=== PATIENT | female | born 1930 | race Caucasian/White ===

== ENCOUNTER 2016-06-18 11:15 | Inpatient (IN) | payer MEDICARE, OTHER ==
[~2016-06-18] VITALS: Ht 162.6 cm; Wt 54.4 kg
[2016-06-18 11:59] LABS: BASOPHILS % (AUTO) 0.1 % (0.0-2.0); DIFF TOTAL % 100 %; EOSINOPHILS # (AUTO) 0.1 /CMM (0.0-0.7); EOSINOPHILS % (AUTO) 1.2 % (0.0-6.0); HEMATOCRIT 33 % (33-45); HEMOGLOBIN 10.6 g/dL (11.5-14.8); LYMPHOCYTES # (AUTO) 0.7 /CMM (0.8-4.8); LYMPHOCYTES % (AUTO) 11.2 % (20.0-44.0); MEAN CORPUSCULAR HEMOGLOBIN 30 PG (26.0-33.0); MEAN CORPUSCULAR HGB CONC 32 g/dl (31.0-36.0); MEAN CORPUSCULAR VOLUME 93 fL (82-100); MONOCYTES # (AUTO) 0.3 /CMM (0.1-1.30); MONOCYTES % (AUTO) 5.4 % (2.0-12.0); NEUTROPHILS # (AUTO) 4.8 /CMM (1.8-8.9); NEUTROPHILS % (AUTO) 82.1 % (43.0-81.0); PLATELET COUNT (AUTO) 245 /CMM (150-450); RED BLOOD CELL COUNT(AUTO) 3.51 MIL/uL (4.0-5.2); WHITE BLOOD COUNT (AUTO) 5.9 K/uL (4.3-11.0)
[2016-06-18 12:15] LABS: INR 1.01 (0.87-1.13); PROTHROMBIN TIME 10.6 SECS (9.5-12.7)
[2016-06-18 12:21] LABS: ALBUMIN 2.6 g/dL (3.4-5.0); BILIRUBIN,DIRECT 0.1 mg/dL (0.0-0.2); BILIRUBIN,TOTAL 0.3 mg/dL (0.2-1.0); CALCIUM, SERUM 8.1 mg/dL (8.5-10.1); CREATININE 1.1 mg/dL (0.6-1.3); INDIRECT BILIRUBIN 0.2 mg/dL (0.0-1.1); TOTAL PROTEIN, SERUM 5.6 g/dL (6.4-8.2)
[2016-06-18 12:31] LABS: KETONES,URINE Trace (NEGATIVE); LEUKOCYTE ESTERASE ,URINE Negative (NEGATIVE); PH,URINE 5.5 (5.0-8.0)
[2016-06-18] MEDS ORDERED: IV NS 0.9% 1,000 ML IV ONE ×2 (12:37→14:00)
[2016-06-18 12:46] LABS: ADD UA MICROSCOPIC YES
[2016-06-18 12:53] LABS: ADD URINE CULTURE NO
[2016-06-18] MEDS ORDERED: INSULIN REGULAR, HUMAN 100 UNIT/ML 10 ML VIAL SQ ONE (13:00)
[2016-06-18] MEDS ORDERED: METRONIDAZOLE 500MG/ NS 100ML 100 ML IV ONE (13:43)
[2016-06-18] MEDS ORDERED: INSULIN REGULAR, HUMAN 100 UNIT/ML 10 ML VIAL ONE (13:43)
[2016-06-18] MEDS ORDERED: IV SET PRIMARY 1 EA INFUS.SET MC ONE (13:43)
[2016-06-18] MEDS ORDERED: IV SET PRIMARY PUMP SET 1 EA INFUS.SET MC ONE (13:43)
[2016-06-18] MEDS ORDERED: IV NS 0.9% 1,000 ML ONE (13:43)
[2016-06-18] MEDS ORDERED: IV D5/0.45 NACL 1,000 ML IV PRN (13:46)
[2016-06-18] MEDS ORDERED: ASPI-605 PO (13:52)
[2016-06-18] MEDS ORDERED: REPA1TAB6 PO (13:52)
[2016-06-18] MEDS ORDERED: LINA5TAB PO (13:52)
[2016-06-18] MEDS ORDERED: METO-304 PO (13:52)
[2016-06-18] MEDS ORDERED: CYAN100071 PO (13:52)
[2016-06-18] MEDS ORDERED: AMLO5TAB2 PO (13:52)
[2016-06-18] MEDS ORDERED: PANCRELIPASE PO (13:52)
[2016-06-18] MEDS ORDERED: VITA1TAB PO (13:52)
[2016-06-18] MEDS ORDERED: FLAGYL/NS RTU 500 MG/100 ML PIGGYBACK IV ONE (14:00)
[2016-06-18] MEDS ORDERED: ACETAMINOPHEN 325 MG TABLET PO PRN (14:00)
[2016-06-18] MEDS ORDERED: LEVOFLOXACIN 500 MG /D5W 100ML 500 MG in PREMIX 1 EA IV SCH (14:00)
[2016-06-18] MEDS ORDERED: Z GUARD REMEDY 2 OZ OINT TP PRN (14:00)
[2016-06-18] MEDS ORDERED: HYDROCODONE/APAP 5/325MG 1 EACH TABLET PO PRN (14:00)
[2016-06-18] MEDS ORDERED: ONDANSETRON HCL/PF 4 MG/2 ML VIAL IVP PRN (14:00)
[2016-06-18] MEDS ORDERED: MORPHINE SULFATE INJ 2 MG/ML DISP.SYRIN IV PRN (14:00)
[2016-06-18] MEDS ORDERED: LEVOFLOXACIN 750 MG /D5W 150ML PIGGYBACK IV ONE (14:00)
[2016-06-18] MEDS ORDERED: MAG HYDROX/AL HYDROX/SIMETH 30 ML UDC PO PRN (14:00)
[2016-06-18] MEDS ORDERED: DEXTROSE 50%-WATER 50 ML DISP.SYRIN IV PRN ×2 (14:00→18:00)
[2016-06-18] MEDS ORDERED: MAGNESIUM HYDROXIDE 30 ML UDC PO PRN (14:00)
[2016-06-18] MEDS ORDERED: PEG 3350/NA SULF,BICARB,CL/KCL 4,000 ML BOTTLE PO ONE (15:30)
[2016-06-18 16:00] VITALS: BP 117/72
[2016-06-18] MEDS ORDERED: *INSULIN REGULAR(HUMULIN R)HUM 100 UNIT/ML VIAL SQ PRN (18:00)
[2016-06-18] MEDS: BLOOD SUGAR DIAGNOSTIC 1 EACH STRIP VI SCH ×2 (18:00→22:15)
[2016-06-18] MEDS ORDERED: INSULIN REGULAR, HUMAN 100 UNIT/ML 3 ML VIAL SQ PRN (18:00)
[2016-06-18] MEDS ORDERED: SECONDARY IV SET 1 EA INFUS.SET MC ONE (18:55)
[2016-06-18] MEDS: ENOXAPARIN SODIUM 30 MG/0.3 ML DISP.SYRIN SQ SCH (19:30)
[2016-06-18 20:00] VITALS: BP 129/70
[2016-06-18] MEDS: METRONIDAZOLE 500MG/ NS 100ML 500 MG in PREMIX 1 EA IV SCH (21:08)
[2016-06-18] MEDS ORDERED: BLOOD SUGAR DIAGNOSTIC 1 EACH STRIP VI SCH (22:00)
[2016-06-18] MEDS: *INSULIN REGULAR(HUMULIN R)HUM 100 UNIT/ML VIAL SQ PRN (22:23)
[2016-06-19] MEDS: METRONIDAZOLE 500MG/ NS 100ML 500 MG in PREMIX 1 EA IV SCH ×5 (01:13→23:23)
[2016-06-19 07:11] LABS: ALBUMIN 2.8 g/dL (3.4-5.0); BILIRUBIN,DIRECT 0.1 mg/dL (0.0-0.2); BILIRUBIN,TOTAL 0.3 mg/dL (0.2-1.0); CALCIUM, SERUM 8.4 mg/dL (8.5-10.1); CREATININE 0.9 mg/dL (0.6-1.3); INDIRECT BILIRUBIN 0.2 mg/dL (0.0-1.1); PHOSPHORUS 3.4 mg/dL (2.5-4.9); POTASSIUM 3.7 mmol/L (3.5-5.1); TOTAL PROTEIN, SERUM 6.1 g/dL (6.4-8.2)
[2016-06-19] MEDS: BLOOD SUGAR DIAGNOSTIC 1 EACH STRIP VI SCH ×4 (07:12→21:47)
[2016-06-19 07:33] LABS: BASOPHILS % (AUTO) 0.1 % (0.0-2.0); DIFF TOTAL % 100 %; EOSINOPHILS # (AUTO) 0.1 /CMM (0.0-0.7); EOSINOPHILS % (AUTO) 1.9 % (0.0-6.0); HEMATOCRIT 34 % (33-45); HEMOGLOBIN 11.3 g/dL (11.5-14.8); LYMPHOCYTES # (AUTO) 1.2 /CMM (0.8-4.8); LYMPHOCYTES % (AUTO) 16.4 % (20.0-44.0); MEAN CORPUSCULAR HEMOGLOBIN 31 PG (26.0-33.0); MEAN CORPUSCULAR HGB CONC 34 g/dl (31.0-36.0); MEAN CORPUSCULAR VOLUME 94 fL (82-100); MONOCYTES # (AUTO) 0.6 /CMM (0.1-1.30); MONOCYTES % (AUTO) 7.7 % (2.0-12.0); NEUTROPHILS # (AUTO) 5.6 /CMM (1.8-8.9); NEUTROPHILS % (AUTO) 73.9 % (43.0-81.0); PLATELET COUNT (AUTO) 243 /CMM (150-450); RED BLOOD CELL COUNT(AUTO) 3.61 MIL/uL (4.0-5.2); WHITE BLOOD COUNT (AUTO) 7.6 K/uL (4.3-11.0)
[2016-06-19 08:00] VITALS: BP 142/75
[2016-06-19] MEDS: PANTOPRAZOLE 40 MG VIAL IV SCH (09:00)
[2016-06-19] MEDS ORDERED: Magnesium 1GM/D5W 100ML PREMIX 100 ML IV SCH (12:00)
[2016-06-19] MEDS ORDERED: SECONDARY IV SET 1 EA INFUS.SET MC ONE (14:35)
[2016-06-19] MEDS: INSULIN REGULAR, HUMAN 100 UNIT/ML 3 ML VIAL SQ PRN ×2 (14:43→17:35)
[2016-06-19] MEDS: ENOXAPARIN SODIUM 30 MG/0.3 ML DISP.SYRIN SQ SCH (14:43)
[2016-06-19 16:00] VITALS: BP 130/72
[2016-06-19] MEDS: LEVOFLOXACIN 250 MG /D5W 50 ML 250 MG in PREMIX 1 EA IV SCH (16:15)
[2016-06-19 20:00] VITALS: BP 128/68
[2016-06-19 20:31] VITALS: BP 128/68
[2016-06-19] MEDS: *INSULIN REGULAR(HUMULIN R)HUM 100 UNIT/ML VIAL SQ PRN (22:22)
[2016-06-20] MEDS: METRONIDAZOLE 500MG/ NS 100ML 500 MG in PREMIX 1 EA IV SCH ×2 (05:34→12:23)
[2016-06-20] MEDS: BLOOD SUGAR DIAGNOSTIC 1 EACH STRIP VI SCH ×2 (06:37→12:24)
[2016-06-20] MEDS: INSULIN REGULAR, HUMAN 100 UNIT/ML 3 ML VIAL SQ PRN ×2 (06:41→12:35)
[2016-06-20 07:54] LABS: BASOPHILS % (AUTO) 0.4 % (0.0-2.0); DIFF TOTAL % 100 %; EOSINOPHILS # (AUTO) 0.2 /CMM (0.0-0.7); EOSINOPHILS % (AUTO) 4.3 % (0.0-6.0); HEMATOCRIT 33 % (33-45); HEMOGLOBIN 10.7 g/dL (11.5-14.8); LYMPHOCYTES % (AUTO) 25.6 % (20.0-44.0); MEAN CORPUSCULAR HEMOGLOBIN 30 PG (26.0-33.0); MEAN CORPUSCULAR HGB CONC 33 g/dl (31.0-36.0); MEAN CORPUSCULAR VOLUME 93 fL (82-100); MONOCYTES # (AUTO) 0.3 /CMM (0.1-1.30); MONOCYTES % (AUTO) 7.4 % (2.0-12.0); NEUTROPHILS # (AUTO) 2.4 /CMM (1.8-8.9); NEUTROPHILS % (AUTO) 62.3 % (43.0-81.0); PLATELET COUNT (AUTO) 277 /CMM (150-450); RED BLOOD CELL COUNT(AUTO) 3.53 MIL/uL (4.0-5.2); WHITE BLOOD COUNT (AUTO) 3.9 K/uL (4.3-11.0)
[2016-06-20 08:00] VITALS: BP 153/78
[2016-06-20 08:31] LABS: CALCIUM, SERUM 8.4 mg/dL (8.5-10.1); POTASSIUM 3.7 mmol/L (3.5-5.1)
[2016-06-20 08:32] LABS: BILIRUBIN,DIRECT 0.1 mg/dL (0.0-0.2); CREATININE 0.9 mg/dL (0.6-1.3); INDIRECT BILIRUBIN 0.1 mg/dL (0.0-1.1)
[2016-06-20 08:33] LABS: ALBUMIN 2.5 g/dL (3.4-5.0); TOTAL PROTEIN, SERUM 5.5 g/dL (6.4-8.2)
[2016-06-20 08:35] LABS: BILIRUBIN,TOTAL 0.2 mg/dL (0.2-1.0); PHOSPHORUS 3.8 mg/dL (2.5-4.9)
[2016-06-20] MEDS: PANTOPRAZOLE 40 MG VIAL IV SCH (09:10)
[2016-06-20] MEDS: LEVOFLOXACIN 250 MG /D5W 50 ML 250 MG in PREMIX 1 EA IV SCH (14:39)
[2016-06-20] MEDS: ENOXAPARIN SODIUM 30 MG/0.3 ML DISP.SYRIN SQ SCH (14:45)
[2016-06-20 16:00] VITALS: BP 138/72
[2016-06-20 16:27] VITALS: BP 138/72
== END 2016-06-20 18:30 | disposition home or self-care (01) | DRG 438 ==
LOC: ER 11:16 → MEDSG2 13:56
PROVIDERS: ADMIT Internal Medicine; ATTEND Internal Medicine
PROC: 0DBE8ZX Excision of Large Intestine, Via Natural or Artificial Opening Endoscopic, Diagnostic (ICD-10-PCS; principal; 2016-06-19 09:29)
DX: K85.90 Acute pancreatitis without necrosis or infection, unspecified (principal); E43 Unspecified severe protein-calorie malnutrition; K52.9 Noninfective gastroenteritis and colitis, unspecified; Z90.411 Acquired partial absence of pancreas; I10 Essential (primary) hypertension; E11.9 Type 2 diabetes mellitus without complications; K59.09 Other constipation; K59.00 Constipation, unspecified; D64.9 Anemia, unspecified; Z68.20 Body mass index [BMI] 20.0-20.9, adult; K57.30 Diverticulosis of large intestine without perforation or abscess without bleeding; K64.1 Second degree hemorrhoids
CPT/HCPCS: 36415; 80048-TC; 80061-TC; 80076-TC; 81000-TC; 82962-TC; 83690-TC; 83735-TC; 84100-TC; 85025-TC; 85730-TC; 87081-TC; 88305-TC; A4216; A4606; C9113; J1650; J1815; J1956; J2405; J3475; J3490; J7030; Z7610

== ENCOUNTER 2016-07-23 12:24 | Inpatient (IN) | payer MEDICARE, OTHER ==
[~2016-07-23] VITALS: Ht 162.6 cm; Wt 50.8 kg
[~2016-07-23 12:24] MED LIST: AMLO5TAB2 PO; ASPI-605 PO; CYAN100071 PO; LINA5TAB PO; METO-304 PO; PANCRELIPASE PO; REPA1TAB6 PO; VITA1TAB PO
[2016-07-23] MEDS ORDERED: IV NS 0.9% 500 ML BAG IV ONE (13:30)
[2016-07-23] MEDS ORDERED: IV SET PRIMARY 1 EA INFUS.SET MC ONE (13:36)
[2016-07-23] MEDS ORDERED: IV NS 0.9% 500 ML IV ONE (13:36)
[2016-07-23 13:46] LABS: BASOPHILS % (AUTO) 0.2 % (0.0-2.0); DIFF TOTAL % 100 %; EOSINOPHILS % (AUTO) 0.1 % (0.0-6.0); HEMATOCRIT 32 % (33-45); HEMOGLOBIN 10.7 g/dL (11.5-14.8); LYMPHOCYTES # (AUTO) 0.8 /CMM (0.8-4.8); LYMPHOCYTES % (AUTO) 5.4 % (20.0-44.0); MEAN CORPUSCULAR HEMOGLOBIN 31 PG (26.0-33.0); MEAN CORPUSCULAR HGB CONC 34 g/dl (31.0-36.0); MEAN CORPUSCULAR VOLUME 91 fL (82-100); MONOCYTES # (AUTO) 0.6 /CMM (0.1-1.30); MONOCYTES % (AUTO) 4.4 % (2.0-12.0); NEUTROPHILS # (AUTO) 12.8 /CMM (1.8-8.9); NEUTROPHILS % (AUTO) 89.9 % (43.0-81.0); PLATELET COUNT (AUTO) 263 /CMM (150-450); WHITE BLOOD COUNT (AUTO) 14.2 K/uL (4.3-11.0)
[2016-07-23 13:53] LABS: ANION GAP 16 (5-14); CALCIUM, SERUM 8.1 mg/dL (8.5-10.1); CARBON DIOXIDE 26 mmol/L (21-32); CHLORIDE 94 mmol/L (98-107); CREATININE 1.4 mg/dL (0.6-1.3); GLUCOSE 341 mg/dL (74-106); SODIUM SERUM 132 mmol/L (136-145); UREA NITROGEN, BLOOD 20 mg/dL (7-18)
[2016-07-23 13:55] LABS: INR 1.11 (0.87-1.13); PROTHROMBIN TIME 11.7 SECS (9.5-12.7)
[2016-07-23 13:59] LABS: ALANINE AMINOTRANSFERASE 37 U/L (12-78); ALBUMIN 2.8 g/dL (3.4-5.0); ASPARTATE AMINOTRANSFERASE 60 U/L (15-37); BILIRUBIN,DIRECT 0.1 mg/dL (0.0-0.2); BILIRUBIN,TOTAL 0.6 mg/dL (0.2-1.0); INDIRECT BILIRUBIN 0.5 mg/dL (0.0-1.1); TOTAL PROTEIN, SERUM 6.3 g/dL (6.4-8.2); TROPONIN I < 0.017 ng/mL (0.00-0.056)
[2016-07-23 14:23] LABS: LACTIC ACID 3.1 mmol/L (0.4-2.0)
[2016-07-23 14:29] LABS: KETONES,URINE 15 (NEGATIVE); LEUKOCYTE ESTERASE ,URINE Negative (NEGATIVE); PH,URINE 5.5 (5.0-8.0)
[2016-07-23 14:30] LABS: ADD UA MICROSCOPIC YES
[2016-07-23 14:32] LABS: *LACTIC ACID REFLEX FLAG YES
[2016-07-23 14:32] LABS: ADD URINE CULTURE NO
[2016-07-23] MEDS ORDERED: INSULIN REGULAR, HUMAN 100 UNIT/ML 10 ML VIAL SQ ONE (15:00)
[2016-07-23] MEDS ORDERED: INSULIN REGULAR, HUMAN 100 UNIT/ML 10 ML VIAL ONE (15:07)
[2016-07-23] MEDS ORDERED: INSU100I14 SQ (15:27)
[2016-07-23] MEDS ORDERED: CYAN10009 PO (15:27)
[2016-07-23] MEDS ORDERED: AMYL1CAP61 PO (15:27)
[2016-07-23] MEDS ORDERED: CHOL100062 PO (15:27)
[2016-07-23] MEDS ORDERED: Z GUARD REMEDY 2 OZ OINT TP PRN (17:00)
[2016-07-23] MEDS ORDERED: HYDROCODONE/APAP 5/325MG 1 EACH TABLET PO PRN (17:00)
[2016-07-23] MEDS ORDERED: MAG HYDROX/AL HYDROX/SIMETH 30 ML UDC PO PRN (17:00)
[2016-07-23] MEDS ORDERED: ACETAMINOPHEN 325 MG TABLET PO PRN (17:00)
[2016-07-23] MEDS ORDERED: MAGNESIUM HYDROXIDE 30 ML UDC PO PRN (17:00)
[2016-07-23] MEDS ORDERED: DEXTROSE 50%-WATER 50 ML DISP.SYRIN IV PRN (17:00)
[2016-07-23] MEDS ORDERED: ZOLPIDEM TARTRATE 5 MG TABLET PO PRN (17:00)
[2016-07-23] MEDS ORDERED: ONDANSETRON HCL/PF 4 MG/2 ML VIAL IVP PRN (17:00)
[2016-07-23] MEDS ORDERED: IV SET PRIMARY PUMP SET 1 EA INFUS.SET MC ONE (18:14)
[2016-07-23] MEDS: IV NS 0.9% 1,000 ML IV PRN (18:23)
[2016-07-23] MEDS: BLOOD SUGAR DIAGNOSTIC 1 EACH STRIP VI SCH ×2 (18:23→21:58)
[2016-07-23] MEDS ORDERED: SECONDARY IV SET 1 EA INFUS.SET MC ONE (19:49)
[2016-07-23 19:59] VITALS: BP 142/92
[2016-07-23] MEDS: INSULIN LISPRO/ASPART 100 UNIT/ML CARTRIDGE SQ SCH (20:02)
[2016-07-23] MEDS: AMYLASE/LIPASE/PROTEASE 1 CAP.EC PO SCH (20:02)
[2016-07-23] MEDS: METRONIDAZOLE 500MG/ NS 100ML 500 MG in PREMIX 1 EA IV SCH (20:03)
[2016-07-23] MEDS: *INSULIN REGULAR(HUMULIN R)HUM 100 UNIT/ML VIAL SQ PRN (21:57)
[2016-07-24] MEDS: METRONIDAZOLE 500MG/ NS 100ML 500 MG in PREMIX 1 EA IV SCH (05:16)
[2016-07-24 06:34] LABS: BASOPHILS % (AUTO) 0.2 % (0.0-2.0); DIFF TOTAL % 100 %; EOSINOPHILS % (AUTO) 0.1 % (0.0-6.0); HEMATOCRIT 32 % (33-45); HEMOGLOBIN 10.6 g/dL (11.5-14.8); LYMPHOCYTES # (AUTO) 2.3 /CMM (0.8-4.8); LYMPHOCYTES % (AUTO) 20.3 % (20.0-44.0); MEAN CORPUSCULAR HEMOGLOBIN 31 PG (26.0-33.0); MEAN CORPUSCULAR HGB CONC 33 g/dl (31.0-36.0); MEAN CORPUSCULAR VOLUME 93 fL (82-100); MONOCYTES # (AUTO) 0.9 /CMM (0.1-1.30); MONOCYTES % (AUTO) 7.9 % (2.0-12.0); NEUTROPHILS # (AUTO) 8.2 /CMM (1.8-8.9); NEUTROPHILS % (AUTO) 71.5 % (43.0-81.0); PLATELET COUNT (AUTO) 242 /CMM (150-450); RED BLOOD CELL COUNT(AUTO) 3.48 MIL/uL (4.0-5.2); WHITE BLOOD COUNT (AUTO) 11.4 K/uL (4.3-11.0)
[2016-07-24] MEDS: BLOOD SUGAR DIAGNOSTIC 1 EACH STRIP VI SCH ×4 (06:43→22:14)
[2016-07-24 06:50] LABS: CALCIUM, SERUM 8.2 mg/dL (8.5-10.1); CREATININE 1.2 mg/dL (0.6-1.3); PHOSPHORUS 3.5 mg/dL (2.5-4.9); POTASSIUM 3.6 mmol/L (3.5-5.1)
[2016-07-24 07:59] VITALS: BP 104/53
[2016-07-24 08:00] VITALS: BP 104/53
[2016-07-24] MEDS: INSULIN LISPRO/ASPART 100 UNIT/ML CARTRIDGE SQ SCH ×3 (08:00→18:00)
[2016-07-24] MEDS: AMYLASE/LIPASE/PROTEASE 1 CAP.EC PO SCH ×3 (08:15→18:32)
[2016-07-24] MEDS: CYANOCOBALAMIN 500 MCG TABLET PO SCH (08:16)
[2016-07-24] MEDS: CHOLECALCIFEROL 1,000 UNIT TABLET (VIT D3) PO SCH (08:16)
[2016-07-24] MEDS: ASPIRIN EC 81 MG TABLET.DR PO SCH (08:16)
[2016-07-24] MEDS: METOPROLOL SUCCINATE 50 MG TAB.SR.24H PO SCH (08:22)
[2016-07-24] MEDS: AMLODIPINE BESYLATE 5 MG TABLET PO SCH (08:23)
[2016-07-24] MEDS ORDERED: IV NS 0.9% 1,000 ML BAG IV SCH (09:00)
[2016-07-24] MEDS ORDERED: SECONDARY IV SET 1 EA INFUS.SET MC ONE (12:13)
[2016-07-24] MEDS: Magnesium 1GM/D5W 100ML PREMIX 100 ML IV SCH ×2 (12:23→13:54)
[2016-07-24] MEDS: INSULIN REGULAR, HUMAN 100 UNIT/ML 3 ML VIAL SQ PRN ×2 (12:25→18:38)
[2016-07-24 16:00] VITALS: BP 130/77
[2016-07-24 16:36] LABS: IRON, SERUM 11 ug/dl (50-175); PERCENT SATURATION 6 % (14-33); TOTAL IRON BINDING CAPACITY 187 ug/dl (250-450)
[2016-07-24 20:00] VITALS: BP 137/81
[2016-07-24] MEDS ORDERED: METRONIDAZOLE 500 MG TABLET PO SCH (21:00)
[2016-07-24 22:00] VITALS: BP 137/81
[2016-07-24] MEDS: *INSULIN REGULAR(HUMULIN R)HUM 100 UNIT/ML VIAL SQ PRN (22:17)
[2016-07-25 06:40] LABS: BASOPHILS % (AUTO) 0.2 % (0.0-2.0); DIFF TOTAL % 100 %; EOSINOPHILS # (AUTO) 0.1 /CMM (0.0-0.7); EOSINOPHILS % (AUTO) 1.1 % (0.0-6.0); HEMATOCRIT 31 % (33-45); LYMPHOCYTES # (AUTO) 1.2 /CMM (0.8-4.8); LYMPHOCYTES % (AUTO) 12.5 % (20.0-44.0); MEAN CORPUSCULAR HEMOGLOBIN 30 PG (26.0-33.0); MEAN CORPUSCULAR HGB CONC 33 g/dl (31.0-36.0); MEAN CORPUSCULAR VOLUME 92 fL (82-100); MONOCYTES # (AUTO) 0.7 /CMM (0.1-1.30); MONOCYTES % (AUTO) 6.6 % (2.0-12.0); NEUTROPHILS # (AUTO) 7.9 /CMM (1.8-8.9); NEUTROPHILS % (AUTO) 79.6 % (43.0-81.0); PLATELET COUNT (AUTO) 228 /CMM (150-450)
[2016-07-25] MEDS: BLOOD SUGAR DIAGNOSTIC 1 EACH STRIP VI SCH ×3 (06:51→17:09)
[2016-07-25] MEDS: INSULIN REGULAR, HUMAN 100 UNIT/ML 3 ML VIAL SQ PRN ×2 (06:53→12:03)
[2016-07-25 06:54] LABS: CALCIUM, SERUM 7.8 mg/dL (8.5-10.1); CREATININE 0.9 mg/dL (0.6-1.3); POTASSIUM 3.7 mmol/L (3.5-5.1)
[2016-07-25 08:00] VITALS: BP 114/70
[2016-07-25] MEDS ORDERED: glyBURIDE 2.5 MG TABLET PO SCH (09:00)
[2016-07-25] MEDS: AMYLASE/LIPASE/PROTEASE 1 CAP.EC PO SCH ×3 (09:05→17:09)
[2016-07-25] MEDS: CHOLECALCIFEROL 1,000 UNIT TABLET (VIT D3) PO SCH (09:07)
[2016-07-25] MEDS: INSULIN LISPRO/ASPART 100 UNIT/ML CARTRIDGE SQ SCH ×3 (09:09→18:00)
[2016-07-25] MEDS: METOPROLOL SUCCINATE 50 MG TAB.SR.24H PO SCH (09:13)
[2016-07-25] MEDS: CYANOCOBALAMIN 500 MCG TABLET PO SCH (09:13)
[2016-07-25] MEDS: ASPIRIN EC 81 MG TABLET.DR PO SCH (09:15)
[2016-07-25] MEDS: AMLODIPINE BESYLATE 5 MG TABLET PO SCH (09:18)
[2016-07-25] MEDS: IV NS 0.9% 1,000 ML IV PRN (09:50)
[2016-07-25 16:00] VITALS: BP 134/80
== END 2016-07-25 19:10 | disposition home or self-care (01) | DRG 371 ==
LOC: ER 12:26 → MEDSG2 15:17
PROVIDERS: ADMIT Family Medicine; ATTEND Family Medicine
DX: A04.7 Enterocolitis due to Clostridium difficile (principal); N17.0 Acute kidney failure with tubular necrosis; E44.0 Moderate protein-calorie malnutrition; E87.1 Hypo-osmolality and hyponatremia; E87.2 Acidosis; D72.829 Elevated white blood cell count, unspecified; E11.65 Type 2 diabetes mellitus with hyperglycemia; E86.1 Hypovolemia; I10 Essential (primary) hypertension; I11.9 Hypertensive heart disease without heart failure; R29.6 Repeated falls; D64.9 Anemia, unspecified; E83.42 Hypomagnesemia; E83.51 Hypocalcemia; F32.9 Major depressive disorder, single episode, unspecified; K43.9 Ventral hernia without obstruction or gangrene; K59.09 Other constipation; Z90.411 Acquired partial absence of pancreas; Z79.82 Long term (current) use of aspirin; Z91.81 History of falling
CPT/HCPCS: 36415; 71010-TC; 80048-TC; 80061-TC; 80076-TC; 81000-TC; 82306; 82728-TC; 82962-TC; 83540-TC; 83605-TC; 83690-TC; 83735-TC; 84100-TC; 84484-TC; 85025-TC; 85730-TC; 87040-TC; 87081-TC; 97001-TC; 97003-TC; A4216; A4606; J1815; J3475; J3490; J7030; J7040; Z7610

== ENCOUNTER 2016-10-17 07:23 | Inpatient (IN) | payer MEDICARE, OTHER ==
[~2016-10-17] VITALS: Ht 165.1 cm; Wt 49.9 kg
[~2016-10-17 07:23] MED LIST changes: +AMYL1CAP61 PO; +CHOL100062 PO; -CYAN100071 PO; +CYAN10009 PO; +INSU100I14 SQ; -LINA5TAB PO; -PANCRELIPASE PO; -REPA1TAB6 PO; -VITA1TAB PO
[2016-10-17] MEDS ORDERED: IV SET PRIMARY PUMP SET 1 EA INFUS.SET MC ONE ×2 (07:25→15:17)
[2016-10-17] MEDS ORDERED: IV NS 0.9% 1,000 ML ONE (07:25)
[2016-10-17] MEDS ORDERED: IV NS 0.9% 1,000 ML BAG IV ONE (07:30)
--- NOTE | 2016-10-17 07:38 | NUR ---
bib ra 99 for altered from home with bs level 64, given 250 cc D10, second accucheck 163. nad noted. pt aao x2 but still very forgetful. rr even and unlabored. vss. md at bedside for eval.
--- NOTE | 2016-10-17 07:44 | NUR ---
BIOSECURITY OFFICER AT
--- NOTE | 2016-10-17 07:47 | NUR ---
ENAMEL SPRAYER AT
--- NOTE | 2016-10-17 07:49 | NUR ---
urine obtained sent to lab
--- NOTE | 2016-10-17 07:50 | NUR ---
REPORT GIVEN TO FLOOR NURSE FOR JAVI
[2016-10-17] MEDS ORDERED: INSU100V7 SQ (08:05)
[2016-10-17] MEDS ORDERED: GLYB2.5T4 PO (08:05)
[2016-10-17 08:06] LABS: EOSINOPHILS % (AUTO) 0.1 % (0.0-6.0); HEMATOCRIT 39 % (33-45); HEMOGLOBIN 12.6 g/dL (11.5-14.8); LYMPHOCYTES # (AUTO) 0.5 /CMM (0.8-4.8); LYMPHOCYTES % (AUTO) 5.6 % (20.0-44.0); MEAN CORPUSCULAR HEMOGLOBIN 30 PG (26.0-33.0); MEAN CORPUSCULAR HGB CONC 32 g/dl (31.0-36.0); MEAN CORPUSCULAR VOLUME 94 fL (82-100); MONOCYTES # (AUTO) 0.1 /CMM (0.1-1.30); MONOCYTES % (AUTO) 1.6 % (2.0-12.0); NEUTROPHILS # (AUTO) 8.4 /CMM (1.8-8.9); NEUTROPHILS % (AUTO) 92.7 % (43.0-81.0); PLATELET COUNT (AUTO) 261 /CMM (150-450); RDW COEFFICIENT OF VARIATION 14.7 (11.5-15.0); RED BLOOD CELL COUNT(AUTO) 4.18 MIL/uL (4.0-5.2)
[2016-10-17 08:06] LABS: APPEARANCE,URINE TURBID (CLEAR); BILIRUBIN,URINE NEGATIVE (NEGATIVE); BLOOD, URINE 3+ Ery/uL (NEGATIVE); COLOR,URINE YELLOW (YELLOW); KETONES,URINE NEGATIVE (NEGATIVE); LEUKOCYTE ESTERASE ,URINE NEGATIVE (NEGATIVE); NITRITE, URINE POSITIVE (NEGATIVE); PH,URINE 5.5 (5.0-8.0); PROTEIN,URINE 2+ mg/dl (NEGATIVE); UGLUCOSE 2+ mg/dL (NEGATIVE); UROBILINOGEN,URINE 0.2 EU/dL (0.2)
[2016-10-17] MEDS ORDERED: AMYL1CAP62 PO (08:08)
[2016-10-17] MEDS ORDERED: BLOO-668 IN (08:08)
[2016-10-17 08:19] LABS: CALCIUM, SERUM 8.6 mg/dL (8.5-10.1); CARBON DIOXIDE 26 mmol/L (21-32); CHLORIDE 103 mmol/L (98-107); GLUCOSE 230 mg/dL (74-106); POTASSIUM 4.3 mmol/L (3.5-5.1); SODIUM SERUM 138 mmol/L (136-145); UREA NITROGEN, BLOOD 27 mg/dL (7-18)
[2016-10-17 08:25] LABS: TROPONIN I 0.023 ng/mL (0.00-0.056)
[2016-10-17 08:26] LABS: INR 0.95 (0.87-1.13); PROTHROMBIN TIME 10.1 SECS (9.5-12.7)
[2016-10-17 08:33] LABS: ALANINE AMINOTRANSFERASE 32 U/L (12-78); ALBUMIN 3.8 g/dL (3.4-5.0); ALKALINE PHOSPHATASE 129 U/L (46-116); ASPARTATE AMINOTRANSFERASE 30 U/L (15-37); BILIRUBIN,DIRECT 0.1 mg/dL (0.0-0.2); BILIRUBIN,TOTAL 0.3 mg/dL (0.2-1.0); LIPASE 63 U/L (73-393); TOTAL PROTEIN, SERUM 7.3 g/dL (6.4-8.2)
[2016-10-17 08:34] LABS: RBC,URINE 51-80 /HPF (0-2); WBC,URINE 0-3 /HPF (0-3)
[2016-10-17 08:35] LABS: BACTERIA,URINE Moderate /HPF (None Seen); SQUAMOUS EPITHELIAL CELL,UR Few /HPF (None Seen)
[2016-10-17] MEDS ORDERED: INSU100V27 SQ (09:20)
--- NOTE | 2016-10-17 09:45 | NUR ---
EP[facility] called for admission
--- NOTE | 2016-10-17 09:54 | NUR ---
MD FRANCIS ON PHONE WITH MD TRONCOSO
--- NOTE | 2016-10-17 09:54 | NUR ---
PATIENT TRANSPORTED TO .,[facility]
--- NOTE | 2016-10-17 10:00 | NUR ---
ENVIRONMENTAL TECHNOLOGY PROFESSOR NOTES RECIEVED PT. FROM ER NURSE IN STABLE CONDITION. PT. A/O X3 WITH PERIODS OF CONFUSION. DAUGHTER AT BEDSIDE. WILL AWAIT FURTHER ORDERS FROM MD AND BEGIN ADMISSION PROCESS.
[2016-10-17] MEDS ORDERED: MAGNESIUM HYDROXIDE 30 ML UDC PO PRN (11:00)
[2016-10-17] MEDS ORDERED: HYDROCODONE/APAP 5/325MG 1 EACH TABLET PO PRN (11:00)
[2016-10-17] MEDS ORDERED: MAG HYDROX/AL HYDROX/SIMETH 30 ML UDC PO PRN (11:00)
[2016-10-17] MEDS ORDERED: IV NS 0.9% 1,000 ML IV PRN (11:00)
[2016-10-17] MEDS ORDERED: ONDANSETRON HCL/PF 4 MG/2 ML VIAL IVP PRN (11:00)
[2016-10-17] MEDS ORDERED: ZOLPIDEM TARTRATE 5 MG TABLET PO PRN (11:00)
[2016-10-17] MEDS ORDERED: Z GUARD REMEDY 2 OZ OINT TP PRN (11:00)
[2016-10-17] MEDS: BLOOD SUGAR DIAGNOSTIC 1 EACH STRIP IN SCH ×3 (11:19→21:26)
[2016-10-17] MEDS ORDERED: DEXTROSE 50%-WATER 50 ML DISP.SYRIN IV PRN (11:30)
[2016-10-17] MEDS: INSULIN REGULAR, HUMAN 100 UNIT/ML 3 ML VIAL SQ PRN ×3 (12:18→21:42)
[2016-10-17] MEDS ORDERED: [UNRECOGNIZED DRUG - OTHER] PO SCH (13:00)
[2016-10-17] MEDS ORDERED: hydrALAZINE HCL 25 MG TABLET PO PRN (13:00)
[2016-10-17] MEDS ORDERED: PROTEASE PO SCH (13:00)
[2016-10-17] MEDS ORDERED: LIPASE PO SCH (13:00)
[2016-10-17] MEDS ORDERED: AMYLASE PO SCH (13:00)
[2016-10-17] MEDS: LIPASE/PROTEASE/AMYLASE 1 EACH CAPSULE.DR PO SCH ×2 (13:12→18:03)
[2016-10-17] MEDS: ENOXAPARIN SODIUM 40 MG/0.4 ML DISP.SYRIN SQ SCH (13:14)
[2016-10-17] MEDS: AMLODIPINE BESYLATE 5 MG TABLET PO SCH (15:48)
[2016-10-17 16:00] VITALS: BP 117/56
[2016-10-17 16:54] VITALS: BP 175/82
--- NOTE | 2016-10-17 18:14 | NUR ---
FINANCIAL OPERATIONS CONSULTANT CLOSING NOTES PT. IN STABLE CONDITION. A/O X3 WITH PERIODS OF CONDITION. NO SOB OR SIGNS OF DISTRESS NOTED. DENIES DIZZINESS AT THIS TIME. NO ACUTE CHANGES IN CONDITION OCCURRED DURING SHIFT. IV ON LEFT AC 18G INTACT AND PATENT INFUSING NS @ 75 ML.HR. PT. TOLERATING INFUSION WELL. NO REDNESS OR SIGNS OF INFILTRATION NOTED. ON TELE MONITOR WITH SINUS RHYTHM HR: 63. ALL PT NEEDS MET AND ORDERS CARRIED OUT ACCORDINGLY. BED IN LOW LOCKED POSITION, SIDE RAILS UP X3, CALL LIGHT WITHIN REACH. WILL ENDORSE TO NIGHTSHIFT NURSE FOR JAVI
--- NOTE | 2016-10-17 19:30 | NUR ---
RN NOTES RECEIVED PT. AWAKE ON BED, A/OX3, SR ON TELE MONITOR HR-81, DENIES PAIN, NO SOB, CALL LIGHT WITHIN REACH, SIDERAILS UPX2, CONTINUT TO MONITOR
[2016-10-17 20:00] VITALS: BP 130/71
--- NOTE | 2016-10-17 21:00 | NUR ---
RN NOTES PT REQUESTED TO STOPPED THE IV FLUID TONIGHT AND WILL RESUME IT IN THE MORNING
[2016-10-17] MEDS: ACETAMINOPHEN 325 MG TABLET PO PRN (21:39)
[2016-10-18] VITALS: BP 116/66
[2016-10-18 04:00] VITALS: BP_SYST 141; BP_SYST 142; BP_SYST 147; BP_DIAS 77; BP_DIAS 78; BP_DIAS 83
[2016-10-18] MEDS: ACETAMINOPHEN 325 MG TABLET PO PRN ×2 (05:45→20:04)
--- NOTE | 2016-10-18 05:48 | NUR ---
RN NOTES COMPLAINED OF HEADACHE TYLENOL 650MG PO GIVEN ORDERED, V/S STABLE
--- NOTE | 2016-10-18 06:30 | NUR ---
RN NOTES NEW IV LINE INSERTED, MORNING CARE RENDERED, PT NEEDS ATTENDED, DENIES PAIN, NO SOB, ENDORSED TO DAYSHIFT NURSE FOR CONTINUITY OF CARE
[2016-10-18 07:07] VITALS: BP 139/77
[2016-10-18] MEDS: BLOOD SUGAR DIAGNOSTIC 1 EACH STRIP IN SCH ×4 (07:30→21:47)
[2016-10-18 07:48] LABS: BASOPHILS % (AUTO) 0.4 % (0.0-2.0); EOSINOPHILS # (AUTO) 0.4 /CMM (0.0-0.7); EOSINOPHILS % (AUTO) 5.6 % (0.0-6.0); HEMATOCRIT 32 % (33-45); HEMOGLOBIN 10.8 g/dL (11.5-14.8); LYMPHOCYTES # (AUTO) 2.1 /CMM (0.8-4.8); LYMPHOCYTES % (AUTO) 31.5 % (20.0-44.0); MEAN CORPUSCULAR HEMOGLOBIN 31 PG (26.0-33.0); MEAN CORPUSCULAR HGB CONC 33 g/dl (31.0-36.0); MEAN CORPUSCULAR VOLUME 92 fL (82-100); MONOCYTES # (AUTO) 0.4 /CMM (0.1-1.30); MONOCYTES % (AUTO) 6.3 % (2.0-12.0); NEUTROPHILS # (AUTO) 3.7 /CMM (1.8-8.9); NEUTROPHILS % (AUTO) 56.2 % (43.0-81.0); PLATELET COUNT (AUTO) 221 /CMM (150-450); RDW COEFFICIENT OF VARIATION 14.8 (11.5-15.0); RED BLOOD CELL COUNT(AUTO) 3.51 MIL/uL (4.0-5.2); WHITE BLOOD COUNT (AUTO) 6.5 K/uL (4.3-11.0)
[2016-10-18 08:00] VITALS: BP 129/78
--- NOTE | 2016-10-18 08:00 | NUR ---
MS RN RECEIVED ON BED, AWAKE,ALERT,ORIENTED X3,NOT IN ANY FORM OF DISTRESS, RESPIRATIONS EVEN AND UNLABORED,NO SOB NOTED. LUNGS ARE CLEAR, ABDOMEN SOFT,POSITIVE BOWEL SOUNDS, DENIES PAIN AT THIS TIME, WILL MONITOR PATIENT.
[2016-10-18 08:06] LABS: CALCIUM, SERUM 8.4 mg/dL (8.5-10.1); CARBON DIOXIDE 27 mmol/L (21-32); CHLORIDE 105 mmol/L (98-107); CREATININE 1.2 mg/dL (0.6-1.3); GLUCOSE 176 mg/dL (74-106); MAGNESIUM 1.7 mg/dL (1.8-2.4); POTASSIUM 4.1 mmol/L (3.5-5.1); SODIUM SERUM 143 mmol/L (136-145); UREA NITROGEN, BLOOD 27 mg/dL (7-18)
[2016-10-18 08:07] LABS: CHOLESTEROL 160 mg/dL (<200); HDL CHOLESTEROL 71 mg/dL (40-60); LDL 64 mg/dL (0-99); TRIGLYCERIDES 108 mg/dL (30-150)
[2016-10-18] MEDS ORDERED: AMLODIPINE BESYLATE 5 MG TABLET PO SCH (09:00)
--- NOTE | 2016-10-18 09:00 | NUR ---
MS LOPEZ BREAKFAST SERVED,DUE MEDS GIVEN,TOLERATED WELL.
[2016-10-18] MEDS: LIPASE/PROTEASE/AMYLASE 1 EACH CAPSULE.DR PO SCH ×3 (09:10→17:31)
[2016-10-18] MEDS: PANTOPRAZOLE 40 MG TABLET.DR PO SCH (09:10)
[2016-10-18] MEDS: AMLODIPINE BESYLATE 5 MG TABLET PO SCH (09:11)
[2016-10-18] MEDS: ASPIRIN EC 81 MG TABLET.DR PO SCH (09:11)
[2016-10-18] MEDS: hydrALAZINE HCL 25 MG TABLET PO PRN (09:11)
[2016-10-18] MEDS: METOPROLOL SUCCINATE 50 MG TAB.SR.24H PO SCH (09:12)
[2016-10-18] MEDS ORDERED: SECONDARY IV SET 1 EA INFUS.SET MC ONE (11:28)
[2016-10-18] MEDS: Magnesium 1GM/D5W 100ML PREMIX 100 ML IV SCH ×2 (11:37→12:45)
[2016-10-18] MEDS: ENOXAPARIN SODIUM 40 MG/0.4 ML DISP.SYRIN SQ SCH (11:49)
--- NOTE | 2016-10-18 12:00 | NUR ---
MS RN WAS SEEN BY DR. RABAGO, W/ ORDERS MADE AND CARRIED OUT.
[2016-10-18] MEDS: INSULIN REGULAR, HUMAN 100 UNIT/ML 3 ML VIAL SQ PRN ×2 (12:44→21:54)
[2016-10-18 16:00] VITALS: BP 118/70
[2016-10-18] MEDS: glipiZIDE XL 2.5 MG TAB.OSM.24 PO SCH (17:34)
--- NOTE | 2016-10-18 18:00 | NUR ---
ms rn patient transferred to room 323 bed 2, bs - 99 - no coverage given.
--- NOTE | 2016-10-18 19:02 | NUR ---
ms rn on bed, no distress noted,all needs attended.
[2016-10-18 20:00] VITALS: BP_SYST 140; BP_SYST 159; BP_DIAS 87
[2016-10-19] VITALS (7 sets, daily range): BP systolic 135–168; BP diastolic 69–101
[2016-10-19 07:03] LABS: BASOPHILS % (AUTO) 0.3 % (0.0-2.0); EOSINOPHILS # (AUTO) 0.4 /CMM (0.0-0.7); EOSINOPHILS % (AUTO) 7.1 % (0.0-6.0); HEMATOCRIT 32 % (33-45); HEMOGLOBIN 10.8 g/dL (11.5-14.8); LYMPHOCYTES # (AUTO) 1.9 /CMM (0.8-4.8); LYMPHOCYTES % (AUTO) 36.2 % (20.0-44.0); MEAN CORPUSCULAR HEMOGLOBIN 31 PG (26.0-33.0); MEAN CORPUSCULAR HGB CONC 33 g/dl (31.0-36.0); MEAN CORPUSCULAR VOLUME 93 fL (82-100); MONOCYTES # (AUTO) 0.4 /CMM (0.1-1.30); MONOCYTES % (AUTO) 7.1 % (2.0-12.0); NEUTROPHILS # (AUTO) 2.6 /CMM (1.8-8.9); NEUTROPHILS % (AUTO) 49.3 % (43.0-81.0); PLATELET COUNT (AUTO) 205 /CMM (150-450); RDW COEFFICIENT OF VARIATION 14.9 (11.5-15.0); RED BLOOD CELL COUNT(AUTO) 3.49 MIL/uL (4.0-5.2); WHITE BLOOD COUNT (AUTO) 5.3 K/uL (4.3-11.0)
[2016-10-19 07:15] LABS: CALCIUM, SERUM 8.4 mg/dL (8.5-10.1); CARBON DIOXIDE 30 mmol/L (21-32); CHLORIDE 105 mmol/L (98-107); CREATININE 1.1 mg/dL (0.6-1.3); GLUCOSE 157 mg/dL (74-106); POTASSIUM 4.2 mmol/L (3.5-5.1); SODIUM SERUM 142 mmol/L (136-145); UREA NITROGEN, BLOOD 23 mg/dL (7-18)
--- NOTE | 2016-10-19 07:25 | NUR ---
MS RN OPENING NOTES RECEIVED ON BED FROM NIGHTSHIFT NURSE IN STABLE CONDITION. A/O X3. NO SOB OR SIGNS OF DISTRESS NOTED.RESPIRATIONS ARE EVEN AND UNLABORED. DENIES PAIN AT THIS TIME. IV ON RIGHT FOREARM INTACT AND PATENT. NO REDNESS OR INFILTRATION NOTED. BED IN LOW LOCKED POSITION, SIDE RAILS UP X3, CALL LIGHT WITHIN REACH. WILL CONTINUE TO MONITOR.
[2016-10-19] MEDS: glipiZIDE XL 2.5 MG TAB.OSM.24 PO SCH (07:30)
[2016-10-19] MEDS: LIPASE/PROTEASE/AMYLASE 1 EACH CAPSULE.DR PO SCH ×3 (09:10→17:21)
[2016-10-19] MEDS: BLOOD SUGAR DIAGNOSTIC 1 EACH STRIP IN SCH ×4 (09:10→21:50)
[2016-10-19] MEDS: METOPROLOL SUCCINATE 50 MG TAB.SR.24H PO SCH (09:11)
[2016-10-19] MEDS: PANTOPRAZOLE 40 MG TABLET.DR PO SCH (09:11)
[2016-10-19] MEDS: AMLODIPINE BESYLATE 5 MG TABLET PO SCH (09:11)
[2016-10-19] MEDS: ASPIRIN EC 81 MG TABLET.DR PO SCH (09:12)
[2016-10-19] MEDS ORDERED: GLYB2.5T4 PO (12:02)
[2016-10-19] MEDS: INSULIN REGULAR, HUMAN 100 UNIT/ML 3 ML VIAL SQ PRN ×3 (12:22→21:53)
[2016-10-19] MEDS: ENOXAPARIN SODIUM 40 MG/0.4 ML DISP.SYRIN SQ SCH (12:23)
--- NOTE | 2016-10-19 16:30 | NUR ---
MS RN NOTES PT. REPORTED DIZZINESS AND FELT "SWEATY". BLOOD SUGAR WAS CHECKED AND WAS 37. DEXTROSE WAS ADMINISTERED AND BLOOD SUGAR WAS RECHECKED. NEW RESULT WAS 201. PT. IS NOW STABLE IN BED AND STATES "I FEEL A LITTLE BETTER, BUT I DON'T KNOW WHAT HAPPENED". DR. TRONCOSO WAS MADE AWARE, AND ORDERED TO HOLD PT. DISCHARGE AND CONTINUE TO CLOSELY MONITOR PT.
[2016-10-19] MEDS: hydrALAZINE HCL 25 MG TABLET PO PRN (17:22)
--- NOTE | 2016-10-19 19:50 | NUR ---
MS RN CLOSING NOTES PT. IN STABLE CONDITION. NO SYMPTOMS OF HYPER.HYPOGLYCEMIA. DENIES DIZZINESS AT THIS TIME. ALL NEEDS MET DURING SHIFT AND ORDERS CARRIED OUT ACCORDINGLY. ALL SAFETY MEASURES IN PLACE. WILL ENDORSE TO FISH HEADER [id number] FOR JAVI
--- NOTE | 2016-10-19 19:51 | NUR ---
RN NOTES RECEIVED PT ASLEEP, BREATHING REGULAR AND UNLABORED, NO SOB, NOT IN DISTRESS, ON ROOM AIR AND TOLERATED WELL. PT APPEARS COMFORTABLE IN BED, NO SIGNS OF PAIN AND DISCOMFORT NOTED. KEPT COMFORTABLE AND ATTENDED. KEPT BED IN THE LOWEST POSITION, LOCKED, SIDE RAILS X2 UP, WITH CALL LIGHT WITHIN REACH. WILL CONTINUE TO MONITOR PT.
[2016-10-19] MEDS: ACETAMINOPHEN 325 MG TABLET PO PRN (21:51)
--- NOTE | 2016-10-19 21:51 | NUR ---
RN NOTES PT COMPLAINS OF HEADACHE, TYLENOL 650 MG TAB GIVEN PO AND TOLERATED WELL. WILL CONTINUE TO MONITOR PT.
--- NOTE | 2016-10-19 21:53 | NUR ---
RN NOTES BLOOD SUGAR CHECKED 204MG/DL, 4 UNITS OF REGULAR INSULIN GIVEN SUBCU. WILL CONTINUE TO MONITOR PT.
[2016-10-20] MEDS: BLOOD SUGAR DIAGNOSTIC 1 EACH STRIP IN SCH ×4 (06:35→21:31)
[2016-10-20 07:09] LABS: BASOPHILS % (AUTO) 0.3 % (0.0-2.0); EOSINOPHILS # (AUTO) 0.3 /CMM (0.0-0.7); EOSINOPHILS % (AUTO) 5.3 % (0.0-6.0); HEMATOCRIT 32 % (33-45); HEMOGLOBIN 10.8 g/dL (11.5-14.8); LYMPHOCYTES # (AUTO) 1.9 /CMM (0.8-4.8); LYMPHOCYTES % (AUTO) 33.8 % (20.0-44.0); MEAN CORPUSCULAR HEMOGLOBIN 31 PG (26.0-33.0); MEAN CORPUSCULAR HGB CONC 33 g/dl (31.0-36.0); MEAN CORPUSCULAR VOLUME 93 fL (82-100); MONOCYTES # (AUTO) 0.4 /CMM (0.1-1.30); MONOCYTES % (AUTO) 7.1 % (2.0-12.0); NEUTROPHILS # (AUTO) 3.1 /CMM (1.8-8.9); NEUTROPHILS % (AUTO) 53.5 % (43.0-81.0); PLATELET COUNT (AUTO) 215 /CMM (150-450); RDW COEFFICIENT OF VARIATION 14.9 (11.5-15.0); RED BLOOD CELL COUNT(AUTO) 3.47 MIL/uL (4.0-5.2); WHITE BLOOD COUNT (AUTO) 5.7 K/uL (4.3-11.0)
--- NOTE | 2016-10-20 07:25 | NUR ---
RN NOTES PT AWAKE, DENIES ANY PAIN AND DISCOMFORT AT THIS TIME. NO SOB. NOT IN ACUTE DISTRESS, ON ROOM AIR AND TOLERATED WELL. VITAL SIGNS STABLE, NO EPISODE OF NAUSEA NAD VOMITING. NO SIGNS OF HYPO AND HYPERGLYCEMIA NOTED, OFFERED MIDNIGHT SNACKS. ALL NEEDS MET. ENDORSED TO MORNING RN FOR CONTINUITY OF CARE.
[2016-10-20 07:27] LABS: CALCIUM, SERUM 8.5 mg/dL (8.5-10.1); CARBON DIOXIDE 31 mmol/L (21-32); CHLORIDE 104 mmol/L (98-107); CREATININE 1.1 mg/dL (0.6-1.3); GLUCOSE 124 mg/dL (74-106); MAGNESIUM 1.8 mg/dL (1.8-2.4); PHOSPHORUS 4.2 mg/dL (2.5-4.9); POTASSIUM 4.2 mmol/L (3.5-5.1); SODIUM SERUM 140 mmol/L (136-145); UREA NITROGEN, BLOOD 25 mg/dL (7-18)
--- NOTE | 2016-10-20 07:47 | NUR ---
MS RN OPENING NOTES RECEIVED PATIENT IN BED AWAKE, A/O X 3 IN NO ACUTE SIGNS OF DISTRESS NOTED. ON ROOM AIR, BREATHING UN-LABORED WITH NO SOB. IV ACCESS ON RIGHT FA INTACT AND PATENT WITH WITH NO S/S OF INFILTRATION NOTED. CALL LIGHT WITHIN REACH. BED LOCKED AND IN LOWEST POSITION. ALL SAFETY PRECAUTIONS MAINTAINED. WILL CONTINUE TO MONITOR ACCORDINGLY.
[2016-10-20 08:00] VITALS: BP 172/84
[2016-10-20] MEDS: glipiZIDE XL 2.5 MG TAB.OSM.24 PO SCH (08:06)
[2016-10-20] MEDS: ASPIRIN EC 81 MG TABLET.DR PO SCH (08:07)
[2016-10-20] MEDS: LIPASE/PROTEASE/AMYLASE 1 EACH CAPSULE.DR PO SCH ×3 (08:07→17:16)
[2016-10-20] MEDS: PANTOPRAZOLE 40 MG TABLET.DR PO SCH (08:07)
[2016-10-20] MEDS: METOPROLOL SUCCINATE 50 MG TAB.SR.24H PO SCH (08:10)
[2016-10-20] MEDS: AMLODIPINE BESYLATE 5 MG TABLET PO SCH (08:10)
[2016-10-20] MEDS: ENOXAPARIN SODIUM 40 MG/0.4 ML DISP.SYRIN SQ SCH (12:10)
[2016-10-20] MEDS: INSULIN REGULAR, HUMAN 100 UNIT/ML 3 ML VIAL SQ PRN ×3 (12:11→21:35)
--- NOTE | 2016-10-20 15:55 | NUR ---
RN NOTES PATIENT COMPLAINTS OF LIGHTHEADEDNESS, BLOOD SUGAR WAS CHECKED 49 mg/dl. DAUGHTER AT BEDSIDE REFUSED 50% DIS SYRINGE. ORANGE JUICE WAS GIVEN INSTEAD. RE-CHECKED B/S AFTER 10MNUTES AND WAS 60 mg/dl. DR TRONCOSO MADE AWARE WITH ORDER TO CHECK B/S IN 10-15MINUTES AND WILL LET HER KNOW THE RESULT.
[2016-10-20 16:00] VITALS: BP_SYST 151; BP_DIAS 57; BP_DIAS 78
--- NOTE | 2016-10-20 16:15 | NUR ---
RN NOTES PATIENT'S BLOOD SUGAR RE-CHECKED AT 1610H AND WAS 103mg/dl. MD MADE AWARE WITH ORDER TO DISCONTINUE GLIPIZIDE 2.5 MG IN AM. WILL CONTINUE TO MONITOR
--- NOTE | 2016-10-20 18:48 | NUR ---
RN CLOSING NOTES PATIENT AWAKE AND RESTING IN BED. ALERT AND ORIENTED X 3, NO C/O PAIN VOICED DURING TOUR. VISITED BY FAMILY THIS TOUR. ON ROOM AIR, NO SOB NOTED. IV ACCESS ON RFA INTACT AND PATENT, NO S/S OF INFILTRATION NOTED. ALL NEEDS AND CARE PROVIDED WELL. DUE MEDS GIVEN ORDERED AND TOLERATED. CALL LIGHT KEPT WITHIN REACH. BED LOCKED AND IN LOW POSITION WITH SIDE-RAILS UP X2. ALL SAFETY PRECAUTIONS MAINTAINED. WILL ENDORSED TO SUPERVISOR BOAT OUTFITTING NURSE FOR JAVI.
--- NOTE | 2016-10-20 19:15 | NUR ---
MS RN OPENING NOTES: RECEIVED PT IN BED AND IS AWAKE, A/O X3. CALL LIGHT WITHIN PT'S REACH. PT HAS R FOREARM #22G AND IS PATENT AND INTACT AND IS CURRENTLY HEP LOCK. BED KEPT IN LOCKED, LOWEST POSITION, AND SIDE RAILS X 2 UP. NO SIGNS OR SYMPTOMS OF DISTRESS NOTED AT THIS TIME. WILL CONTINUE TO MONITOR PT.
[2016-10-20 20:00] VITALS: BP 130/74
--- NOTE | 2016-10-20 21:32 | NUR ---
MS RN NOTES: PT'S BLOOD SUGAR WAS 254. 6 UNITS WAS GIVEN. WILL CONTINUE TO MONITOR PT.
[2016-10-21] MEDS: BLOOD SUGAR DIAGNOSTIC 1 EACH STRIP IN SCH ×4 (06:06→21:48)
--- NOTE | 2016-10-21 06:08 | NUR ---
MS RN NOTES: BLOOD SUGAR WAS 89. NO COVERAGE WAS GIVEN. APPLE JUICE WAS GIVEN. WILL CONTINUE TO MONITOR PT.
[2016-10-21] MEDS: PANTOPRAZOLE 40 MG TABLET.DR PO SCH (06:22)
--- NOTE | 2016-10-21 07:25 | NUR ---
MS RN CLOSING NOTES: ALL NEEDS WERE ATTENDED AND ANTICIPATED FOR. PT KEPT CLEAN, DRY, AND COMFORTABLE. CALL LIGHT WITHIN PT'S REACH. BED KEPT IN LOCKED, LOWEST POSITION, AND SIDE RAILS X 2 UP. PT HAS IV ON R FOREARM #22G AND IS PATENT AND INTACT; CURRENTLY ON HEP LOCK. ENDORSED TO AM NURSE FOR JAVI.
--- NOTE | 2016-10-21 07:25 | NUR ---
MS RN OPENING NOTES PATIENT RECEIVED ASLEEP IN BED, EASILY AWAKENS. ALERT AND ORIENTED X 3, NO COMPLAINTS OF PAIN OR DISCOMFORTS AT THIS TIME. ON ROOM AIR, BREATHING EVEN AND UNLABORED. IV ACCESS ON RIGHT FOREARM G#22 INTACT AND PATENT. CALL LIGHT WITHIN REACH. BED LOCKED AND IN LOWEST POSITION WITH SIDE-RAILS UP X2. ALL SAFETY PRECAUTIONS MAINTAINED. WILL CONTINUE TO MONITOR ACCORDINGLY.
[2016-10-21 08:00] VITALS: BP 145/63
[2016-10-21] MEDS: LIPASE/PROTEASE/AMYLASE 1 EACH CAPSULE.DR PO SCH ×3 (08:13→17:24)
[2016-10-21] MEDS: METOPROLOL SUCCINATE 50 MG TAB.SR.24H PO SCH (08:14)
[2016-10-21] MEDS: AMLODIPINE BESYLATE 5 MG TABLET PO SCH (08:15)
[2016-10-21] MEDS: ASPIRIN EC 81 MG TABLET.DR PO SCH (08:15)
[2016-10-21 11:39] LABS: CALCIUM, SERUM 8.4 mg/dL (8.5-10.1); CARBON DIOXIDE 31 mmol/L (21-32); CHLORIDE 102 mmol/L (98-107); CREATININE 1.2 mg/dL (0.6-1.3); GLUCOSE 320 mg/dL (74-106); MAGNESIUM 1.7 mg/dL (1.8-2.4); POTASSIUM 4.9 mmol/L (3.5-5.1); SODIUM SERUM 137 mmol/L (136-145); UREA NITROGEN, BLOOD 20 mg/dL (7-18)
[2016-10-21] MEDS: INSULIN REGULAR, HUMAN 100 UNIT/ML 3 ML VIAL SQ PRN ×3 (12:03→21:57)
[2016-10-21] MEDS: ENOXAPARIN SODIUM 40 MG/0.4 ML DISP.SYRIN SQ SCH (12:04)
[2016-10-21] MEDS: Magnesium 1GM/D5W 100ML PREMIX 100 ML IV SCH ×2 (13:28→14:32)
--- NOTE | 2016-10-21 13:33 | NUR ---
RN NOTES PATIENT NOTED WITH LOW MG 1.7. TWO BAGS OF 1GM/100ML D5W PREMIX IV ORDERED. WILL CONTINUE TO MONITOR
[2016-10-21 16:00] VITALS: BP 133/87
--- NOTE | 2016-10-21 17:30 | NUR ---
RN NOTES PATIENT'S BLOOD SUGAR THIS AFTERNOON WAS 269 MG/DL, NO C/O LIGHTHEADEDNESS OR HEADACHE. COVERAGE OF HUMULIN R 6 UNITS GIVEN PER SLING SCALE. WILL CONTINUE TO MONITOR.
--- NOTE | 2016-10-21 18:36 | NUR ---
RN CLOSING NOTES PATIENT RESTING IN BED AT MODERATE HIGH BACKREST. ALERT AND ORIENTED X 3, NO C/O PAIN VOICED DURING THE DAY. WATCHES TV ON AND OFF. DIABETIC STATUS CLOSELY MONITORED. ON ROOM AIR, NO SOB NOTED. IV ACCESS ON RFA INTACT AND PATENT, NO S/S OF INFILTRATION NOTED. ALL NEEDS AND CARE PROVIDED WELL. DUE MEDS GIVEN ORDERED AND TOLERATED. CALL LIGHT KEPT WITHIN REACH. BED LOCKED AND IN LOW POSITION WITH SIDE-RAILS UP X2. ALL SAFETY PRECAUTIONS MAINTAINED. WILL ENDORSED TO BANQUET FOOD SERVER NURSE FOR JAVI.
--- NOTE | 2016-10-21 19:35 | NUR ---
MS/RN OPENING NOTES PT AWAKE, A/OX3, ON ROOM AIR. DENIES SOB, BREATHING EVEN AND UNLABORED. DENIES PAIN AT THIS TIME. IV TO RFA PATENT AND INTACT. BED IN LOW/LOCKED POSITION WITH CALL LIGHT IN REACH. BED RAILS UPX2. WILL CONTINUE TO MONITOR
[2016-10-21 20:00] VITALS: BP 121/72
--- NOTE | 2016-10-21 22:02 | NUR ---
MS/RN NOTES BLOOD AEQGB=[id number], ADMINISTERED 4 UNITS OF INSULIN PER SLIDING SCALE. SNACKS PROVIDED AT BEDSIDE. WILL MONITOR FOR S/S OF HYPOGLYCEMIA
[2016-10-22] MEDS: BLOOD SUGAR DIAGNOSTIC 1 EACH STRIP IN SCH ×2 (06:34→12:05)
[2016-10-22] MEDS: INSULIN REGULAR, HUMAN 100 UNIT/ML 3 ML VIAL SQ PRN ×2 (06:36→12:08)
--- NOTE | 2016-10-22 06:43 | NUR ---
MS/RN NOTES BLOOD LRMAG=414, ADMINISTERED 2 UNITS OF INSULIN PER SLIDING SCALE. SNACKS PROVIDED AT BEDSIDE. WILL MONITOR FOR S/S OF HYPOGLYCEMIA
--- NOTE | 2016-10-22 07:07 | NUR ---
MS/RN CLOSING NOTES PT ASLEEP, EASILY AROUSABLE TO NAME. A/OX3. ON ROOM AIR, NO SOB OR DISTRESS NOTED. BREATHING EVEN AND UNLABORED. DENIES PAIN. IV TO RFA PATENT AND INTACT. SNACKS PROVIDED THROUGHOUT SHIFT. MADE PT COMFORTABLE THROUGHOUT SHIFT. ALL NEEDS MET AND ATTENDED. BED IN LOW/LOCKED POSITION WITH CALL LIGHT IN REACH BED RAILS UPX2. WILL ENDORSED TO AM SHIFT RN JAVI.
[2016-10-22 07:10] LABS: CALCIUM, SERUM 8.9 mg/dL (8.5-10.1); CARBON DIOXIDE 31 mmol/L (21-32); CHLORIDE 103 mmol/L (98-107); CREATININE 1.1 mg/dL (0.6-1.3); GLUCOSE 128 mg/dL (74-106); MAGNESIUM 2.2 mg/dL (1.8-2.4); PHOSPHORUS 4.4 mg/dL (2.5-4.9); POTASSIUM 4.7 mmol/L (3.5-5.1); SODIUM SERUM 139 mmol/L (136-145); UREA NITROGEN, BLOOD 22 mg/dL (7-18)
[2016-10-22 07:11] LABS: BASOPHILS % (AUTO) 0.4 % (0.0-2.0); EOSINOPHILS # (AUTO) 0.4 /CMM (0.0-0.7); HEMATOCRIT 35 % (33-45); HEMOGLOBIN 11.7 g/dL (11.5-14.8); LYMPHOCYTES # (AUTO) 1.8 /CMM (0.8-4.8); LYMPHOCYTES % (AUTO) 35.9 % (20.0-44.0); MEAN CORPUSCULAR HEMOGLOBIN 31 PG (26.0-33.0); MEAN CORPUSCULAR HGB CONC 34 g/dl (31.0-36.0); MEAN CORPUSCULAR VOLUME 94 fL (82-100); MONOCYTES # (AUTO) 0.4 /CMM (0.1-1.30); MONOCYTES % (AUTO) 7.1 % (2.0-12.0); NEUTROPHILS # (AUTO) 2.5 /CMM (1.8-8.9); NEUTROPHILS % (AUTO) 49.6 % (43.0-81.0); PLATELET COUNT (AUTO) 227 /CMM (150-450); RDW COEFFICIENT OF VARIATION 14.8 (11.5-15.0); RED BLOOD CELL COUNT(AUTO) 3.72 MIL/uL (4.0-5.2)
--- NOTE | 2016-10-22 07:15 | NUR ---
ms rn initial notes Received patient in bed, asleep, head of bed elevated, no SOB or distress noted. on room air and tolerated well. Alert and oriented x 3, verbally responsive and able to make needs known. IV intact and patent. Kept patient clean and comfortable in bed, call light with in patient reach, will continue to monitor accordingly.
[2016-10-22 08:00] VITALS: BP 129/82
[2016-10-22] MEDS: PANTOPRAZOLE 40 MG TABLET.DR PO SCH (08:25)
[2016-10-22] MEDS: ASPIRIN EC 81 MG TABLET.DR PO SCH (08:25)
[2016-10-22] MEDS: METOPROLOL SUCCINATE 50 MG TAB.SR.24H PO SCH (08:25)
[2016-10-22 08:26] VITALS: BP 129/82
[2016-10-22] MEDS: LIPASE/PROTEASE/AMYLASE 1 EACH CAPSULE.DR PO SCH ×2 (08:26→12:05)
[2016-10-22] MEDS: AMLODIPINE BESYLATE 5 MG TABLET PO SCH (08:26)
[2016-10-22] MEDS: ENOXAPARIN SODIUM 40 MG/0.4 ML DISP.SYRIN SQ SCH (12:07)
--- NOTE | 2016-10-22 14:55 | NUR ---
MS CHEF HEAD NOTES Discharge instructions given to patient and daughter at bedside and able to understand instructions. Prescription given to patient. Signed discharge paper and belonging list. IV discontinued and pressured applied to prevent bleeding. Flu vaccine refused will receive elsewhere. Flu is out of season. Skin is intact. Patient left the hospital in stable condition accompanied by BILLIARD TABLE MECHANIC ladarius and daughter May, with no SOB or distress noted, nor chest pain. MD and charge nurse aware. Vital signs checked and recorded.
== END 2016-10-22 14:55 | disposition home or self-care (01) | DRG 637 ==
LOC: ER 07:27 → TELE 09:27 → MED 10-19 05:06
PROVIDERS: ADMIT Internal Medicine; ATTEND Internal Medicine
DX: E11.649 Type 2 diabetes mellitus with hypoglycemia without coma (principal); G93.41 Metabolic encephalopathy; N39.0 Urinary tract infection, site not specified; E78.5 Hyperlipidemia, unspecified; F03.90 Unspecified dementia, unspecified severity, without behavioral disturbance, psychotic disturbance, mood disturbance, and anxiety; Z79.4 Long term (current) use of insulin; K21.9 Gastro-esophageal reflux disease without esophagitis; I10 Essential (primary) hypertension; Z90.411 Acquired partial absence of pancreas; I70.90 Unspecified atherosclerosis; T38.3X5A Adverse effect of insulin and oral hypoglycemic [antidiabetic] drugs, initial encounter; Y92.009 Unspecified place in unspecified non-institutional (private) residence as the place of occurrence of the external cause; Z86.19 Personal history of other infectious and parasitic diseases
CPT/HCPCS: 36415; 70450-TC; 71010-TC; 80048-TC; 80061-TC; 80076-TC; 81000-TC; 82962-TC; 83605-TC; 83690-TC; 83735-TC; 84100-TC; 84484-TC; 85025-TC; 85730-TC; 87040-TC; 87086-TC; 93307-TC; 93880-TC; 94799-TC; 97001-TC; A4606; J1650; J1815; J3475; J7030; Z7610